=== PATIENT | female | born 1940 | race Caucasian/White ===

== ENCOUNTER → 2017-08-18 | Outpatient (CLI) | payer MEDICARE ==
[~2017-08-18] MED LIST: ASPI-757 PO; CALC-734 PO; EST3 PO; GLUC-198 PO; LEVO-3 PO; MULT-820 PO; NITR-105 PO
--- NOTE | 2017-08-18 15:32 | RADIOLOGY IMAGING REPORT ---
FACILITY: [facility] PATIENT NAME: KRISTAL CAPONE : [id number] MR: [id number] V: [id number] EXAM DATE: [id number] ORDERING PHYSICIAN: NEPTALI CARTY TECHNOLOGIST: Patsy Ayala PROCEDURE:BILATERAL DIGITAL SCREENING MAMMOGRAM WITH CAD ASSISTED INTERPRETATION & 3D TOMOSYNTHESIS COMPARISON:Prior mammograms 07/09/16, 05/23/15, 02/20/14, 02/18/13, 12/29/11, 12/06/10. INDICATIONS:SCREENING FINDINGS: A small to moderate amount of fibroglandular tissue is seen throughout the breasts. The parenchymal pattern has remained stable allowing for difference in mammographic technique & patient positioning. There is no evidence of malignant appearing mass, malignant appearing calcifications or other secondary sign of malignancy in either breast. Biopsy clip is again seen in the approximate 12 o'clock position of the Left breast adjacent to an area of mild architectural distortion from a previous biopsy. DIAGNOSTIC CATEGORY 2--BENIGN FINDING. RECOMMENDATIONS: ROUTINE MAMMOGRAM AND CLINICAL EVALUATION. IMPRESSION: BIRADS 2: Benign finding. No significant abnormality is seen. Dictated by: Glenna Knott M.D. on 08/18/2017 at 15:24 Transcribed by: CALIN on 08/18/2017 at 15:30 Approved by: Glenna Knott M.D. on 08/18/2017 at 15:31 [facility]
== END ==
LOC: MAMO 01:20
PROVIDERS: ATTEND Internal Medicine
DX: Z12.31 Encounter for screening mammogram for malignant neoplasm of breast (principal)
CPT/HCPCS: 77063; 77067

== ENCOUNTER → 2017-09-07 | Outpatient (CLI) | payer MEDICARE ==
[~2017-09-07] MED LIST changes: +CALC-852 PO
== END ==
LOC: LAB 08:36
PROVIDERS: ATTEND Internal Medicine
DX: R79.89 Other specified abnormal findings of blood chemistry (principal)
CPT/HCPCS: 36415; 82575; 84156

== ENCOUNTER 2017-10-14 01:10 | Outpatient (RCR) | payer MEDICARE ==
--- NOTE | 2017-10-14 15:55 | RADIOLOGY IMAGING REPORT ---
FACILITY: [facility] PATIENT NAME: Shruthi Long : 1940 MR: [id number] V: [id number] EXAM DATE: ORDERING PHYSICIAN: BETTINA ZUNIGA TECHNOLOGIST: Location: [facility] Patient: Shruthi Long : 1940 Visit/Account:[id number] Date of Sevice: 10/14/2017 KIDNEYS HISTORY: Screening for actinic keratosis COMPARISON: None. FINDINGS: Kidneys: Right kidney- 8.9 x 4.6 x 4.8 cm with normal parenchymal thickness and echogenicity within normal craven its for the patient's age. No ultrasound evident renal mass lesion or stone. Left kidney- 10.1 x 3.8 x 5.1 cm with normal parenchymal thickness and echogenicity within normal craven its for the patient's age. No ultrasound evident renal mass lesion or stone. Uniform and symmetric blood flow in each kidney by Doppler ultrasound. Hydronephrosis: None. Bladder: Morphologically unremarkable. Bilateral ureteric jets visualized. There is a small post vo id residual of 25 mL. Abdominal aorta and IVC: Patent by Doppler ultrasound. IMPRESSION: Renal ultrasound is within normal limits Report Dictated By: Torres Conroy at 10/14/2017 3:48 PM Report E-Signed By: Torres Conroy at 10/14/2017 3:51 PM WSN:[id number]
== END 2017-10-14 18:00 | disposition home or self-care (01) ==
LOC: US 01:10
PROVIDERS: ATTEND Internal Medicine Nephrology
DX: Z13.9 Encounter for screening, unspecified (principal); L57.0 Actinic keratosis; B96.20 Unspecified Escherichia coli [E. coli] as the cause of diseases classified elsewhere
CPT/HCPCS: 76705; 81001; 87077; 87088; 87186

== ENCOUNTER → 2017-12-30 | Outpatient (CLI) | payer MEDICARE ==
[2017-12-30 09:55] LABS: PLATELET COUNT, AUTOMATED 307 K/uL (150-450)
== END ==
LOC: LAB 09:33
PROVIDERS: ATTEND Internal Medicine Nephrology
DX: N39.0 Urinary tract infection, site not specified (principal); R79.89 Other specified abnormal findings of blood chemistry
CPT/HCPCS: 36415; 81001; 82040; 82310; 82374; 82435; 82565; 82570; 82947; 84100; 84132; 84156; 84295; 84520; 85025

== ENCOUNTER → 2018-08-31 | Outpatient (CLI) | payer MEDICARE ==
--- NOTE | 2018-08-31 14:38 | RADIOLOGY IMAGING REPORT ---
FACILITY: [facility] [place] PATIENT NAME: Shruthi Long : 1940 MR: [id number] V: [id number] EXAM DATE: ORDERING PHYSICIAN: SHERI INFANTE TECHNOLOGIST: [place] [facility] [place] [place] Shruthi Long : 1940 Visit/Account:[id number] Date of Sevice: 08/31/2018 DEXA Scan Clinical history: Screening. Comparison: DEXA scan from 05/05/2014. LUMBAR SPINE: The bone mineral density (BMD) measured from L1-L4 correlates with a Z-score 1.7 and a T-score of -0 .3 which is Normal as defined by the World Health Organization. The corresponding risk of fracture i n the lumbar spine is Not increased compared with a young adult reference population. This value has increased by 2 % since the prior study. More than 5% change is considered significant. HIP: Bone mineral density (BMD) measured in the Left femoral neck region correlates with a Z-score 0.9 and a T-score of -1.3 which is consistent with osteopenia as defined by the World Health Organization. The corresponding risk of fracture in the hip is increased 2-3 times compared with a young adult re ference population. The total hip value has decreased by 4.1 % since the prior study. More than 5% c hange is considered significant. Bone mineral density (BMD) measured in the Femoral Neck region measures 0.852 g/cm2. IMPRESSION: 1. Lumbar spine: Normal. There has been No significant change in the bone mineral density since the previous exam. 2. Left Hip: Consistent with osteopenia. There has been No significant change in the bone mineral d ensity of the total hip since the previous exam. 3. Femoral Neck: Bone Mineral Density is 0.852 g/cm2 The next DEXA scan of this patient should include the following sites: L1-L4 and the left hip. FRAX? WHO Fracture Risk Assessment Tool link: <http://www.shef.ac.uk/FRAX/tool.jsp?locationValue=9> PLEASE NOTE: 1) The World Health Organization defines low BMD as follows: T-score Normal > -1 Osteopenia < -1 and > -2.5 Osteoporosis < -2.5 without fractures Established osteoporosis < -2.5 with fractures 2) In general, you may wish to consider: Diagnosis Treatment Follow-up DEXA Normal BMD Prevention 2-3 years Osteopenia Prevention/therapy 1-2 years Osteoporosis Therapy Yearly 3) Fracture risk estimated from the T-score is more accurate for vertebral fractures (often spontane ous) than for hip fractures. Report Dictated By: Armani Muse MD at 08/31/2018 2:29 PM Report E-Signed By: Armani Muse MD at 08/31/2018 2:30 PM WSN:[email or web address]
== END ==
LOC: RAD 09:44
PROVIDERS: ATTEND Emergency Medicine
DX: Z78.0 Asymptomatic menopausal state (principal)
CPT/HCPCS: 77080

== ENCOUNTER → 2018-09-13 | Outpatient (CLI) | payer MEDICARE ==
--- NOTE | 2018-09-14 10:47 | RADIOLOGY IMAGING REPORT ---
FACILITY: [facility] [place] PATIENT NAME: KRISTAL CAPONE : [id number] MR: [id number] V: [id number] EXAM DATE: ORDERING PHYSICIAN: SHERI INFANTE TECHNOLOGIST: Gavi Tee PROCEDURE: BILATERAL DIGITAL SCREENING MAMMOGRAM WITH CAD ASSISTED INTERPRETATION & 3D TOMOSYNTHESIS REASON FOR STUDY: Screening. FAMILY HISTORY OF BREAST CANCER: BREAST PROCEDURES/TREATMENTS: COMPARISON: 08/18/17 with priors back to 12/29/2011. VIEWS OBTAINED: 2D & 3D full field CC & MLO projections. BREAST DENSITY: The breasts have scattered fibroglandular parenchymal densities. MAMMOGRAM FINDINGS: There is stable architectural distortion in the deep 12 o'clock area of the Left breast from previous excision as well as a marker clip from biopsy in the same area. No new mammographic findings concerning for malignancy on either side. IMPRESSION: BIRADS 2: Benign finding. DIAGNOSTIC CATEGORY 2-BENIGN FINDING. RECOMMENDATIONS: ROUTINE MAMMOGRAM AND CLINICAL EVALUATION IN 1YR. Dictated by: Oliver Akhtar on 09/14/2018 at 9:00 Transcribed by: CALIN on 09/14/2018 at 10:05 Approved by: Oliver Akhtar on 09/14/2018 at 10:42 [facility]
== END ==
LOC: MAMO 01:03
PROVIDERS: ATTEND Emergency Medicine
DX: Z12.31 Encounter for screening mammogram for malignant neoplasm of breast (principal)
CPT/HCPCS: 77063; 77067